=== PATIENT | female | born 1965 | race Caucasian/White ===

== ENCOUNTER 2020-01-08 15:26 | Emergency (ER) | payer MEDICAID ==
[~2020-01-08] VITALS: Ht 152.4 cm; Wt 83.5 kg
[2020-01-08 15:56] VITALS: BP 133/92
--- NOTE | 2020-01-08 16:25 | NUR ---
AMB TO [facility] STEADY GAIT.
--- NOTE | 2020-01-08 16:27 | NUR ---
C/O NON RADIATING BL LOWER BACK PAIN 08/27 X4 DAYS. PT DENIES TRAUMA/INJURY. AMBULATORY WITH STEADY GAIT. HX: NONE RX: NONE
--- NOTE | 2020-01-08 16:56 | NUR ---
REAL JAY EVALUATING PT @ BEDSIDE Addendum: 01/08/20 at 1656 by AIDAN REAL JAY EVALUATING PT AT THIS TIME
[2020-01-08] MEDS ORDERED: KETOROLAC 60 MG/2 ML VIAL IM ONE (17:00)
--- NOTE | 2020-01-08 17:47 | NUR ---
PT IS DRINKING WATER NOW AND WILL ATTEMPT TO PROVIDE URINE SAMPLE.
--- NOTE | 2020-01-08 18:01 | NUR ---
PT IN RESTROOM TO PROVIDE URINE SAMPLE
--- NOTE | 2020-01-08 18:10 | NUR ---
REAL JAY SPEAKING W/ PATIENT AT THIS TIME
--- NOTE | 2020-01-08 18:33 | NUR ---
Patient discharged with v/s stable. Written and verbal after care instructions given and explained. Patient alert, oriented and verbalized understanding of instructions. Ambulatory with steady gait. All questions addressed prior to discharge. ID band removed. Patient advised to follow up with PMD. Rx of KELFEX AND NAPROSYN given. Patient educated on indication of medication including possible reaction and side effects. Opportunity to ask questions provided and answered.
[2020-01-08 18:34] VITALS: BP 126/78
== END 2020-01-08 18:33 | disposition home or self-care (01) ==
LOC: MED 15:26
DX: N39.0 Urinary tract infection, site not specified (principal)
CPT/HCPCS: 81002; 96372; 99283; J1885

== ENCOUNTER 2020-02-07 10:53 | Emergency (ER) | payer MEDICAID ==
[~2020-02-07] VITALS: Ht 152.4 cm; Wt 86.6 kg
[2020-02-07 11:01] VITALS: BP 147/89
[2020-02-07 13:04] VITALS: BP 146/49
== END 2020-02-07 13:01 | disposition home or self-care (01) ==
LOC: MED 10:53
DX: J06.9 Acute upper respiratory infection, unspecified (principal)
CPT/HCPCS: 87081; 99283

== ENCOUNTER 2022-03-29 15:31 | Emergency (ER) | payer MEDICAID ==
[~2022-03-29] VITALS: Ht 149.9 cm; Wt 86.4 kg
[2022-03-29 15:46] VITALS: BP 139/99
--- NOTE | 2022-03-29 15:54 | NUR ---
PT AMB TO BED 3.
[2022-03-29] MEDS ORDERED: KETOROLAC 30 MG/ML VIAL IM ONE (16:20)
[2022-03-29] MEDS ORDERED: FAMOTIDINE 20 MG TAB PO ONE (16:20)
[2022-03-29] MEDS ORDERED: HYDROcodone/APAP 5/325 MG 1 TAB TAB PO ONE (16:20)
--- NOTE | 2022-03-29 16:40 | NUR ---
56 y/o female, c/o epigastric pain radiates down to lower back, rivera and left knee pain for 3 days. denies trauma or overexertion. skin is pink/warm/dry. kosovan speaking, a&o x4 with even and steady gait. lungs clear bl, heart rate even and regular. pt denies dysuria, hematuria, urinary frequency or retention, or anyone sick in the household with the same symptoms. pt denies any fever, cp, sob, or cough at this time. pt states pain is 8/10 at this time. patient positioned for comfort. hob elevated. bed down. ermd made aware of pt. pmh: denies nka med: denies
[2022-03-29] MEDS ORDERED: LID5T TP (17:39)
[2022-03-29] MEDS ORDERED: IBUP-2213 PO (17:39)
[2022-03-29] MEDS ORDERED: ACET-8386 PO (17:39)
[2022-03-29] MEDS ORDERED: FAMO-90 PO (17:39)
[2022-03-29 18:25] VITALS: BP 139/99
--- NOTE | 2022-03-29 18:26 | NUR ---
Patient discharged with v/s stable. Written and verbal after care instructions given and explained. Patient alert, oriented and verbalized understanding of instructions. Ambulatory with spouse to car. All questions addressed prior to discharge. ID band removed. Patient advised to follow up with PMD. Rx of hydrocodone, famotidine, ibuprofen, lidocaine (sent) given. Patient educated on indication of medication including possible reaction and side effects. Opportunity to ask questions provided and answered.
== END 2022-03-29 18:25 | disposition home or self-care (01) ==
LOC: MED 15:31
DX: S39.012A Strain of muscle, fascia and tendon of lower back, initial encounter (principal); M25.562 Pain in left knee; R10.30 Lower abdominal pain, unspecified; Z79.899 Other long term (current) drug therapy; W19.XXXA Unspecified fall, initial encounter; Y93.89 Activity, other specified; Y92.89 Other specified places as the place of occurrence of the external cause; Y99.8 Other external cause status
CPT/HCPCS: 81002; 96372; 99283; J1885

== ENCOUNTER 2022-05-05 00:42 | Emergency (ER) | payer MEDICAID ==
[~2022-05-05] VITALS: Ht 152.4 cm; Wt 88.7 kg
[~2022-05-05 00:42] MED LIST: ACET-8386 PO; FAMO-90 PO; IBUP-2213 PO; LID5T TP
[2022-05-05 00:52] VITALS: BP 136/59
--- NOTE | 2022-05-05 00:59 | NUR ---
PT AMBULATED TO BED 12.
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
[2022-05-05] MEDS ORDERED: diazePAM 5 MG TAB PO ONE (01:20)
[2022-05-05] MEDS ORDERED: KETOROLAC 30 MG/ML VIAL IM ONE (01:20)
--- NOTE | 2022-05-05 01:37 | NUR ---
pt taken to rad.
--- NOTE | 2022-05-05 01:46 | NUR ---
pt back from rad.
[2022-05-05] MEDS ORDERED: NAPR-54 PO (02:16)
[2022-05-05 02:50] VITALS: BP 134/78
== END 2022-05-05 02:50 | disposition home or self-care (01) ==
LOC: MED 00:42
DX: M54.6 Pain in thoracic spine (principal); Z79.1 Long term (current) use of non-steroidal anti-inflammatories (NSAID); Z79.891 Long term (current) use of opiate analgesic; Z79.899 Other long term (current) drug therapy; V49.9XXA Car occupant (driver) (passenger) injured in unspecified traffic accident, initial encounter; Y93.89 Activity, other specified; Y92.410 Unspecified street and highway as the place of occurrence of the external cause; Y99.8 Other external cause status
CPT/HCPCS: 71046; 96372; 99283; J1885